=== PATIENT | female | born 1995 | race Hispanic/Latino ===

== ENCOUNTER 2017-05-07 17:49 | Emergency (ER) | payer OTHER ==
[2017-05-07 17:49] VITALS: BMI 24.5
[2017-05-07] MEDS ORDERED: DiphenhydrAMINE 50 mg/ml Inj IVP STA (18:19)
[2017-05-07] MEDS ORDERED: Morphine 4 mg/ml ISec IVP STA (18:19)
[2017-05-07] MEDS ORDERED: Sodium Chloride 0.9% 1,000 ML IV STA (18:19)
--- NOTE | 2017-05-07 18:24 | ED PDOC ---
Arrival/HPI - General Chief Complaint: Headache Time Seen by Provider: 05/07/17 18:10 Historian: Patient - History of Present Illness Narrative History of Present Illness (Text): 05/07/17 18:19 A 22 year old female, who denies any past medical history, presents to the emergency department complaining of a headache for the past 10 days. Patient reports she was seen by her PMD who prescribed medications for a sinus infection. She also had a negative outpatient head CT done a few days ago. Patient reports her headache worsened today which caused her to come in for further evaluation. She describes her headache as a "thunderclap" and states it felt like her "head was going to explode." Patient notes non-bilious non-bloody vomiting but denies any fever, chills, abdominal pain, chest pain, shortness of breath or any other complaints. Patient denies possible . PMD: Dr. Santos Time/Duration: Other (10 days) Symptom Course: Worsening (today) Quality: Other Context: Home Past Medical History - Provider Review Nursing Documentation Reviewed: Yes - Infectious Disease Hx of Infectious Diseases: None - Tetanus Immunization Tetanus Immunization: Unknown - Past Medical History Past Medical History: No Previous - Cardiac Hx Cardiac Disorders: No - Pulmonary Hx Respiratory Disorders: No - Neurological Hx Neurological Disorder: No - HEENT Hx HEENT Disorder: Yes Hx Macular Degeneration: Yes - Renal Hx Renal Disorder: No - Endocrine/Metabolic Hx Endocrine Disorders: No - Hematological/Oncological Hx Blood Disorders: No - Integumentary Hx Dermatological Disorder: No - Musculoskeletal/Rheumatological Hx Musculoskeletal Disorders: No - Gastrointestinal Hx Gastrointestinal Disorders: No - Genitourinary/Gynecological Hx Genitourinary Disorders: No - Psychiatric Hx Psychophysiologic Disorder: Yes Hx Anxiety: Yes Hx Substance Use: No - Past Surgical History Past Surgical History: No Previous - Suicidal Assessment Feels Threatened In Home Enviroment: No Family/Social History - Physician Review Nursing Documentation Reviewed: Yes Family/Social History: No Known Family HX Smoking Status: Heavy Smoker > 10 Cigarettes Daily Hx Alcohol Use: Yes Hx Substance Use: No Allergies/Home Meds Allergies/Adverse Reactions: Allergies montelukast Allergy (Verified 05/07/17 17:51) URTICARIA Home Medications: Home Meds Medication Instructions Recorded Confirmed Amoxicillin/Clavulanate [Augmentin 1 tab PO BID 05/07/17 05/07/17 875 MG-125 MG Tab] Review of Systems - Physician Review All systems were reviewed & negative as marked: Yes - Review of Systems Constitutional: absent: Fevers, Night Sweats Respiratory: absent: SOB Cardiovascular: absent: Chest Pain Gastrointestinal: Vomiting. absent: Abdominal Pain Neurological: Headache Physical Exam Vital Signs Reviewed: Yes Vital Signs Temp Pulse Resp BP Pulse Ox 05/07/17 20:40 88 18 102/54 L 100 05/07/17 17:52 98.7 F 90 23 124/73 97 Temperature: Afebrile Blood Pressure: Normal Pulse: Regular Respiratory Rate: Normal Appearance: Positive for: Well-Appearing, Non-Toxic, Comfortable Pain Distress: None Mental Status: Positive for: Alert and Oriented X 3 - Systems Exam Head: Present: Atraumatic, Normocephalic Pupils: Present: PERRL Extroacular Muscles: Present: EOMI Conjunctiva: Present: Normal Mouth: Present: Moist Mucous Membranes Neck: Present: Normal Range of Motion Respiratory/Chest: Present: Clear to Auscultation, Good Air Exchange. No: Respiratory Distress, Accessory Muscle Use Cardiovascular: Present: Regular Rate and Rhythm, Normal S1, S2. No: Murmurs Abdomen: Present: Normal Bowel Sounds. No: Tenderness, Distention, Peritoneal Signs Upper Extremity: Present: Normal Inspection. No: Cyanosis, Edema Lower Extremity: Present: Normal Inspection. No: Edema Neurological: Present: GCS=15, CN II-XII Intact, Speech Normal, Motor Func Grossly Intact, Normal Sensory Function, Normal Cerebellar Funct Skin: Present: Warm, Dry, Normal Color. No: Rashes Psychiatric: Present: Alert, Oriented x 3, Normal Insight, Normal Concentration Medical Decision Making ED Course and Treatment: 05/07/17 18:19 Impression: A 22 year old female with worsening headache and vomiting Differential Diagnosis included but are not limited to: Rule out Ruptured Aneurysm Plan: -- Head CT w/o contrast -- CTA head and neck -- Labs -- Urinalysis -- Benadryl, Morphine, Zofran, Compazine and IV fluids -- Reassess and disposition Progress Notes: Report Date : 05/07/2017 21:08:00 EXAM: CT Head Without Intravenous Contrast Dictated By: Justin Prater MD IMPRESSION: No definite acute intracranial abnormality. Report Date: 05/07/17 21:51 EXAM: CT Angiography Head With Intravenous Contrast, CT Angiography Neck With Intravenous Contrast Dictated and Authenticated by: Monique Miranda MD IMPRESSION: - No evidence of occlusion, aneurysm rupture, or other acute abnormality of the major intracranial or neck arteries. - Findings suspicious for a tiny 2 mm aneurysm arising from the right vertebral artery distally, at the C1 level. No aneurysm rupture. - See above for remaining findings. - Lab Interpretations Lab Results: 05/07/17 19:00 05/07/17 19:00 Lab Results 05/07/17 19:07: Urine Color Yellow, Urine Appearance Clear, Urine pH 6.5, Ur Specific [place] 1.020, Urine Protein Negative, Urine Glucose (UA) Negative, Urine Ketones Negative, Urine Blood Small H, Urine Nitrate Negative, Urine Bilirubin Negative, Urine Urobilinogen 0.2, Ur Leukocyte Esterase Negative, Urine RBC Negative, Urine WBC 2 - 5, Ur Epithelial Cells 3 - 4, Urine Bacteria Few 05/07/17 19:00: Sodium 141, Potassium 4.2, Chloride 105, Carbon Dioxide 26, Anion Gap 14, BUN 14, Creatinine 0.7, Est GFR ( Amer) > 60, Est GFR (Non- Af Amer) > 60, Random Glucose 81, Calcium 9.9, Total Bilirubin 0.4, AST 46 H, ALT 51, Alkaline Phosphatase 53, Total Protein 7.1, Albumin 4.2, Globulin 2.9, Albumin/Globulin Ratio 1.4 05/07/17 19:00: PT 11.8, INR 1.03 05/07/17 19:00: WBC 4.0 L, RBC 4.81, Hgb 14.4, Hct 41.0, MCV 85.2, MCH 29.9, MCHC 35.1, RDW 11.9, Plt Count 164, MPV 10.3, Gran % 47.0 L, Lymph % (Auto) 45.5 H, [place] % (Auto) 6.0, Eos % (Auto) 1.5, Baso % (Auto) 0.0, Gran # 1.87, Lymph # (Auto) 1.8, [place] # (Auto) 0.2, Eos # (Auto) 0.1, Baso # (Auto) 0.00 I have reviewed the lab results: Yes - RAD Interpretation Radiology Orders: 05/07/17 18:19 CTA HEAD & NECK BUNDLE [CT] Stat HEAD W/O CONTRAST [CT] Stat - Medication Orders Current Medication Orders: Prochlorperazine (Compazine Tab) 5 mg PO TID LORRAINE Discontinued Medications Diphenhydramine HCl (Benadryl) 25 mg IVP STAT STA Stop: 05/07/17 18:20 Last Admin: 05/07/17 19:30 Dose: 25 mg IVP Administration Document 05/07/17 19:30 CNR (Rec: 05/07/17 19:30 CNR [id number]) Charges for Administration # of IVP Administrations 1 Sodium Chloride (Sodium Chloride 0.9%) 1,000 mls @ 999 mls/hr IV .Q1H1M STA Stop: 05/07/17 19:19 Last Admin: 05/07/17 19:31 Dose: 999 mls/hr eMAR Start Stop Document 05/07/17 19:31 CNR (Rec: 05/07/17 19:31 CNR [id number]) Intravenous Solution Start Date 05/07/17 Start Time 19:31 Morphine Sulfate (Morphine) 4 mg IVP STAT STA Stop: 05/07/17 18:20 Last Admin: 05/07/17 19:30 Dose: 4 mg MAR Pain Assessment Document 05/07/17 19:30 CNR (Rec: 05/07/17 19:30 CNR [id number]) Pain Reassessment Is this a pain reassessment? Yes IVP Administration Document 05/07/17 19:30 CNR (Rec: 05/07/17 19:30 CNR [id number]) Charges for Administration # of IVP Administrations 1 Ondansetron HCl (Zofran Inj) 4 mg IVP STAT STA Stop: 05/07/17 18:20 Last Admin: 05/07/17 19:30 Dose: 4 mg IVP Administration Document 05/07/17 19:30 CNR (Rec: 05/07/17 19:30 CNR [id number]) Charges for Administration # of IVP Administrations 1 - PA / [employer] / Resident Statement MD/ has reviewed & agrees with the documentation as recorded. - Scribe Statement The provider has reviewed the documentation as recorded by the Sameeribgabriela Jameson Provider Scribe Attestation: All medical record entries made by the Sameeribe were at my direction and personally dictated by me. I have reviewed the chart and agree that the record accurately reflects my personal performance of the history, physical exam, medical decision making, and the department course for this patient. I have also personally directed, reviewed, and agree with the discharge instructions and disposition. Disposition/Present on Arrival - Present on Arrival Any Indicators Present on Arrival: No History of DVT/PE: No History of Uncontrolled Diabetes: No Urinary Catheter: No History of Decub. Ulcer: No History Surgical Site Infection Following: None - Disposition Have Diagnosis and Disposition been Completed?: Yes Diagnosis: Cephalgia Disposition: HOME/ ROUTINE Disposition Time: 21:54 Patient Plan: Discharge Condition: GOOD Discharge Instructions (ExitCare): Headache, Adult (DC) Additional Instructions: Bernie- All of your testing was normal so it is not clear why this headache was so bad. Please follow up with Dr. Santos tomorrow. Return to us if any problems. Best- Dr. Monico Cedeno Referrals: Milton Santos, DO [Primary Care Provider] - Follow up with primary Forms: [employer] (Azeri)
[2017-05-07 19:15] LABS: PH,URINE 6.5 (4.7-8.0); URINE BILIRUBIN NEGATIVE (NEGATIVE); URINE BLOOD SMALL (NEGATIVE); URINE GLUCOSE (UA) NEGATIVE (NEGATIVE); URINE LEUKOCYTE ESTERASE NEGATIVE Leu/uL (NEGATIVE); URINE PROTEIN NEGATIVE mg/dL (<30 mg/dL); URINE UROBILINOGEN 0.2 E.U./dL (<1 E.U./dL)
[2017-05-07 19:16] LABS: URINE APPEARANCE CLEAR (CLEAR); URINE COLOR YELLOW (YELLOW)
[2017-05-07 19:21] LABS: URINE BACTERIA FEW (NEG); URINE RBC NEGATIVE /hpf (0-2)
[2017-05-07 19:30] LABS: EOS # 0.1 (0.0-0.7); EOS % 1.5 % (1.5-5.0); GRAN # 1.87 (1.4-6.5); HEMOGLOBIN 14.4 g/dL (12.0-16.0); LYMPH # 1.8 (1.2-3.4); LYMPH % 45.5 % (22.0-35.0); MEAN CELL VOLUME 85.2 fl (80.0-105.0); MEAN CORPUSCULAR HEMOGLOBIN 29.9 pg (25.0-35.0); MEAN CORPUSCULAR HGB CONC 35.1 g/dl (31.0-37.0); MEAN PLATELET VOLUME 10.3 fl (7.0-11.0); MONO # 0.2 (0.1-0.6); RBC 4.81 10^6/uL (3.5-6.1); RED CELL DISTRIBUTION WIDTH 11.9 % (11.5-14.5)
[2017-05-07 19:36] LABS: INR 1.03 (0.93-1.08); PROTHROMBIN TIME 11.8 SECONDS (9.4-12.5)
[2017-05-07 19:41] LABS: ALB/GLOB RATIO 1.4 (1.1-1.8); ALBUMIN 4.2 g/dL (3.0-4.8); ALT/SGPT 51 U/L (7-56); AST/SGOT 46 U/L (14-36); BLOOD UREA NITROGEN 14 mg/dL (7-21); CALCIUM 9.9 mg/dL (8.4-10.5); GFR AFRICAN-AMERICAN > 60; GFR NON-AFRICAN AMERICAN > 60
--- NOTE | 2017-05-07 21:08 | CT ---
EXAM: CT Head Without Intravenous Contrast CLINICAL HISTORY: 22 years old, female; Pain; Headache; Other: Thunderclap headache TECHNIQUE: Axial computed tomography images of the head/brain without intravenous contrast. All CT scans at this facility use one or more dose reduction techniques, viz.: automated exposure control; ma/kV adjustment per patient size (including targeted exams where dose is matched to indication; i.e. head); or iterative reconstruction technique. Coronal and sagittal reformatted images were created and reviewed. COMPARISON: No relevant prior studies available. FINDINGS: Brain: No intracranial hemorrhage. No mass. No definite edema. Ventricles: No hydrocephalus. Bones/joints: No acute fracture. Soft tissues: Unremarkable. Sinuses: No acute sinusitis. Mastoid air cells: No mastoid effusion. Orbits: Unremarkable as visualized. IMPRESSION: 1. No definite acute intracranial abnormality.
--- NOTE | 2017-05-07 21:51 | CT ---
EXAM: CT Angiography Head With Intravenous Contrast CT Angiography Neck With Intravenous Contrast EXAM DATE/TIME: 05/07/2017 6:19 PM CLINICAL HISTORY: 22 years old, female; Pain; Headache; Additional info: Thunderclap headache TECHNIQUE: Axial computed tomographic angiography images of the head and neck with intravenous contrast using CT angiography protocol. All CT scans at this facility use one or more dose reduction techniques, viz.: automated exposure control; ma/kV adjustment per patient size (including targeted exams where dose is matched to indication; i.e. head); or iterative reconstruction technique. All CT scans at this facility use one or more dose reduction techniques, viz.: automated exposure control; ma/kV adjustment per patient size (including targeted exams where dose is matched to indication; i.e. head); or iterative reconstruction technique. MIP reconstructed images were created and reviewed. Coronal and sagittal reformatted images were created and reviewed. CONTRAST: 119.4 mL of OMNI 350 administered intravenously. COMPARISON: Recent head CT FINDINGS: HEAD: RIGHT ANTERIOR CEREBRAL ARTERY: No evidence of occlusion. No aneurysm visualized. RIGHT MIDDLE CEREBRAL ARTERY: No evidence of occlusion. No aneurysm visualized. RIGHT POSTERIOR CEREBRAL ARTERY: origin of the right posterior cerebral artery, a congenital variant. No evidence of occlusion. LEFT ANTERIOR CEREBRAL ARTERY: No evidence of occlusion. No aneurysm visualized. LEFT MIDDLE CEREBRAL ARTERY: No evidence of occlusion. No aneurysm visualized. LEFT POSTERIOR CEREBRAL ARTERY: No evidence of occlusion. No aneurysm visualized. BASILAR ARTERY: No evidence of occlusion or significant stenosis. No aneurysm visualized. NECK: RIGHT COMMON CAROTID ARTERY: No evidence of occlusion or significant stenosis. No evidence of dissection. RIGHT INTERNAL CAROTID ARTERY: No significant plaque visualized. No evidence of occlusion. No aneurysm visualized. RIGHT EXTERNAL CAROTID ARTERY: No evidence of occlusion. RIGHT VERTEBRAL ARTERY: Best seen on images 33 of series 605 and 340 of series 3, there are findings suspicious for a tiny aneurysm arising from the right vertebral artery distally, at the C1 level. This measures 2 mm. No evidence of aneurysm rupture. LEFT COMMON CAROTID ARTERY: No evidence of occlusion or significant stenosis. No evidence of dissection. LEFT INTERNAL CAROTID ARTERY: No significant plaque visualized. No evidence of occlusion. No aneurysm visualized. LEFT EXTERNAL CAROTID ARTERY: No evidence of occlusion. LEFT VERTEBRAL ARTERY: No evidence of occlusion or significant stenosis. No evidence of dissection. HEAD and NECK: BONES/JOINTS: No acute bony abnormality identified. SOFT TISSUES: No acute abnormality of the visualized soft tissues seen. CAROTID STENOSIS REFERENCE USING NASCET CRITERIA: % ICA stenosis = (1 - narrowest ICA diameter/diameter of distal cervical ICA) x 100. Mild - <50% stenosis. Moderate - 50-69% stenosis. Severe - 70-94% stenosis. Near occlusion - 95-99% stenosis. Occluded - 100% stenosis. IMPRESSION: - No evidence of occlusion, aneurysm rupture, or other acute abnormality of the major intracranial or neck arteries. - Findings suspicious for a tiny 2 mm aneurysm arising from the right vertebral artery distally, at the C1 level. No aneurysm rupture. - See above for remaining findings.
[2017-05-08 11:29] VITALS: BP 102/54; PULSE 88; RESP 18; TEMP 98.7; O2SAT 100
== END 2017-05-07 22:10 | disposition home or self-care (01) ==
LOC: ED 17:49
DX: R51 Headache (principal); F17.210 Nicotine dependence, cigarettes, uncomplicated
CPT/HCPCS: 70450; 70496; 70498; 80053; 81001; 85025; 85610; 96374; 96375; 99285; J1200; J2270; J2405; J7040; Q9967